=== PATIENT | female | born 1945 | race Caucasian/White ===

== ENCOUNTER 2016-10-10 22:41 | Emergency (ER) | payer MEDICARE, OTHER ==
[~2016-10-10] VITALS: Ht 165.1 cm; Wt 77.0 kg
[2016-10-10 22:54] VITALS: BP 180/88; PULSE 94; RESP 16; TEMP 97.5; O2SAT 98
[2016-10-10] MEDS ORDERED: OMEP20TA PO (23:28)
[2016-10-10] MEDS ORDERED: MECL-62 PO (23:28)
[2016-10-10] MEDS ORDERED: ONDANSETRON HCL 4 MG/2 ML VIAL IV PUSH ONE (23:30)
[2016-10-10] MEDS ORDERED: SODIUM CHLORIDE 0.9% FLUSH 10 ML FLUSH IVF PRN (23:30)
[2016-10-10 23:35] VITALS: BP 183/85; PULSE 91; RESP 16; O2SAT 97
--- NOTE | 2016-10-10 23:59 | RADRPT ---
EXAM DATE/TIME: 10/10/2016 23:36 [place] COMPARISON: No previous studies available for comparison. INDICATIONS : Nausea, elevated BP, and weakness. MEDICAL HISTORY : None. SURGICAL HISTORY : None. ENCOUNTER: Initial ACUITY: 2 days PAIN SCORE: 3/10 LOCATION: chest FINDINGS: A single view of the chest demonstrates the lungs to be symmetrically aerated without evidence of mas s, infiltrate or effusion. The cardiomediastinal contours are unremarkable. Osseous structures are intact. CONCLUSION: 1. No acute cardiopulmonary disease. Alpesh Mendiola MD on October 10, 2016 at 23:57 Board Certified Radiologist. This report was verified electronically.
[2016-10-11 00:25] LABS: AUTOMATED NEUTROPHIL # 4.9 TH/MM3 (1.8-7.7); BASOPHIL # 0.1 TH/MM3 (0-0.2); BASOPHIL % 0.6 % (0.0-2.0); EOSINOPHIL # 0.2 TH/MM3 (0-0.4); HEMATOCRIT 45.6 % (35.0-46.0); HEMO FLAGS DIFF FINAL; LYMPHOCYTE # 2.1 TH/MM3 (1.0-4.8); MEAN CELL VOLUME 87.1 FL (80.0-100.0); MEAN CORPUSCULAR HEMOGLOBIN 28.9 PG (27.0-34.0); MEAN CORPUSCULAR HGB CONC 33.2 % (32.0-36.0); MONO % 9.1 % (0.0-8.0); NEUT % 62.3 % (16.0-70.0); PLATELET COUNT 331 TH/MM3 (150-450); RED BLOOD COUNT 5.24 MIL/MM3 (4.00-5.30); RED CELL DISTRIBUTION WIDTH 13.2 % (11.6-17.2); WHITE BLOOD COUNT 7.9 TH/MM3 (4.0-11.0)
[2016-10-11 00:47] LABS: ANION GAP 7 MEQ/L (5-15); BICARBONATE 28.2 MEQ/L (21.0-32.0); BLOOD UREA NITROGEN 8 MG/DL (7-18); CHLORIDE 106 MEQ/L (98-107); CREATINE KINASE 98 U/L (26-192); GLOMERULAR FILTRATION RATE 66 ML/MIN (>89); MAGNESIUM 2.3 MG/DL (1.5-2.5); POTASSIUM 3.9 MEQ/L (3.5-5.1); SODIUM (NA) 141 MEQ/L (136-145)
[2016-10-11 00:52] VITALS: BP 151/85; PULSE 91; RESP 16; O2SAT 98
[2016-10-11 00:53] LABS: APTT (PATIENT) 25.8 SEC (24.3-30.1); INTERNATIONAL NORMALIZED RATIO 0.9 RATIO; PROTHROMBIN TIME - PATIENT 10.4 SEC (9.8-11.6)
--- NOTE | 2016-10-11 01:08 | PD ---
HPI Chief Complaint: GI Complaint Time Seen by Provider: 23:02 Travel History International Travel<30 days: No Contact w/Intl Traveler<30days: No Traveled to known affect area: No History of Present Illness HPI The patient 71. She arrives to the ER with a complaint of generalized malaise and a generalized sensation of not feeling well. Patient reports fairly severe stress and anxiety associated with her daughter's recent suicide attempt which has placed her in the ICU with a very grave prognosis. 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 Nausea and vomiting reported by patient to the track manager [facility] Past Medical History GERD: Yes Neurologic: Yes (Vertigo) Past Surgical History Cholecystectomy: Yes Social History Alcohol Use: No Tobacco Use: No Substance Use: No Allergies-Medications (Allergen,Severity, Reaction): Coded Allergies: Bactrim (Verified Allergy, Unknown, 10/11/16) Codeine (Verified Allergy, Unknown, 10/11/16) Penicillin (Verified Allergy, Unknown, 10/11/16) Tetracycline (Verified Allergy, Unknown, 10/11/16) Uncoded Allergies: muscle relaxers (Allergy, Unknown, 10/11/16) pt states all muscle relaxers Reported Meds & Prescriptions Reported Meds & Active Scripts Active Reported Meclizine (Meclizine HCl) 25 Mg Tab 25 Mg PO DIRECTED PRN Omeprazole 20 Mg Tab 20 Mg PO DAILY Review of Systems Except as stated in HPI: all other systems reviewed are Neg Physical Exam Narrative GENERAL: 71-year-old female pleasant well-nourished well-developed SKIN: Focused skin assessment warm/dry. HEAD: Atraumatic. Normocephalic. EYES: Pupils equal and round. No scleral icterus. No injection or drainage. ENT: No nasal bleeding or discharge. Mucous membranes pink and moist. NECK: Trachea midline. No JVD. CARDIOVASCULAR: Regular rate and rhythm. No murmur appreciated. RESPIRATORY: No accessory muscle use. Clear to auscultation. Breath sounds equal bilaterally. GASTROINTESTINAL: Abdomen soft, non-tender, nondistended. Hepatic and splenic margins not palpable. MUSCULOSKELETAL: No obvious deformities. No clubbing. No cyanosis. No edema. NEUROLOGICAL: Awake and alert. No obvious cranial nerve deficits. Motor grossly within normal limits. Normal speech. PSYCHIATRIC: Appropriate mood and affect; insight and judgment normal. Data Data Last Documented VS Vital Signs Date Time Temp Pulse Resp B/P Pulse Ox O2 Delivery O2 Flow Rate FiO2 10/11/16 00:52 91 16 151/85 98 Room Air 10/10/16 22:54 97.5 Vital signs reviewed Orders Electrocardiogram (10/10/16 23:30) Basic Metabolic Panel (Bmp) (10/10/16 23:30) Ckmb (Isoenzyme) Profile (10/10/16 23:30) Complete Blood Count With Diff (10/10/16 23:30) Magnesium (Mg) (10/10/16 23:30) Prothrombin Time / Inr (Pt) (10/10/16 23:30) Act Partial Throm Time (Ptt) (10/10/16 23:30) Troponin I (10/10/16 23:30) Chest, Single Ap (10/10/16 23:30) Ecg Monitoring (10/10/16 23:30) Iv Access Insert/Monitor (10/10/16 23:30) Oximetry (10/10/16 23:30) Oxygen Administration (10/10/16 23:30) Sodium Chloride 0.9% Flush (Ns Flush) (10/10/16 23:30) Ondansetron Inj (Zofran Inj) (10/10/16 23:30) Labs Laboratory Tests Test 10/11/16 00:08 White Blood Count 7.9 TH/MM3 Red Blood Count 5.24 MIL/MM3 Hemoglobin 15.1 GM/DL Hematocrit 45.6 % Mean Corpuscular Volume 87.1 FL Mean Corpuscular Hemoglobin 28.9 PG Mean Corpuscular Hemoglobin 33.2 % Concent Red Cell Distribution Width 13.2 % Platelet Count 331 TH/MM3 Mean Platelet Volume 7.7 FL Neutrophils (%) (Auto) 62.3 % Lymphocytes (%) (Auto) 26.0 % Monocytes (%) (Auto) 9.1 % Eosinophils (%) (Auto) 2.0 % Basophils (%) (Auto) 0.6 % Neutrophils # (Auto) 4.9 TH/MM3 Lymphocytes # (Auto) 2.1 TH/MM3 Monocytes # (Auto) 0.7 TH/MM3 Eosinophils # (Auto) 0.2 TH/MM3 Basophils # (Auto) 0.1 TH/MM3 CBC Comment DIFF FINAL Differential Comment Prothrombin Time 10.4 SEC Prothromb Time International 0.9 RATIO Ratio Activated Partial 25.8 SEC Thromboplast Time Sodium Level 141 MEQ/L Potassium Level 3.9 MEQ/L Chloride Level 106 MEQ/L Carbon Dioxide Level 28.2 MEQ/L Anion Gap 7 MEQ/L Blood Urea Nitrogen 8 MG/DL Creatinine 0.84 MG/DL Estimat Glomerular Filtration 66 ML/MIN Rate Random Glucose 101 MG/DL Calcium Level 9.3 MG/DL Magnesium Level 2.3 MG/DL Total Creatine Kinase 98 U/L Troponin I LESS THAN 0.02 NG/ML MDM Medical Decision Making Medical Screen Exam Complete: Yes Emergency Medical Condition: Yes Medical Record Reviewed: Yes Differential Diagnosis Anxiety, acute coronary syndrome, electrolyte imbalance, sepsis, arrhythmia Narrative Course CBC & BMP Diagram 10/11/16 00:08 INR 0.9 EKG reveals sinus rhythm with a rate of [address] changes Last 24 hours Impressions Chest X-Ray 10/10/16 2330 Signed Impressions: Service Date/Time: September 23:36 - CONCLUSION: 1. No acute cardiopulmonary disease. Alpesh Mendiola MD The patient is resting comfortably and feels better, is alert and in no distress. The patients results and examination findings were discussed. The repeat examination is unremarkable and benign. The history, exam, diagnostic testing, and current condition do not suggest any significant pathology to warrant further testing, continued ED treatment, admission, or surgical evaluation at this point. The vital signs have been stable. The patient does not have uncontrollable pain, intractable vomiting, or other significant symptoms. The patient's condition is stable and appropriate for discharge. The patient will pursue further outpatient evaluation with a primary care physician or other designated or consulting physician as indicated in the discharge instructions. The patient expressed understanding and was agreeable with this plan. Diagnosis Primary Impression: Stress Additional Impression: Diarrhea Qualified Code: R19.7 - Diarrhea, unspecified type Referrals: Primary Care Physician 2 days Additional Instructions: You have a choice when it comes to health care, and we are glad that you chose [facility]. Hopefully, we have met your expectations on today's visit. You are welcome to return to [facility] at any time, as we are committed to meeting the health care needs of our community. Med/Other Pt SpecificInfo: No Change to Meds Disposition: DISCHARGE HOME Condition: Stable Raji Severino MD Oct 11, 2016 01:08
[2016-10-11] MEDS ORDERED: ZOFR4TAB3 SL (01:39)
--- NOTE | 2016-10-11 22:31 | EKG ---
Date Performed: 10/10/2016 Time Performed: 23:42:32 PTAGE: 71 years EKG: Sinus rhythm NONSPECIFIC T-WAVE ABNORMALITY BORDERLINE ECG NO PREVIOUS TRACING DOCTOR: Delano Griffin Interpretating Date/Time 10/11/2016 22:31:02
== END 2016-10-11 01:54 | disposition home or self-care (01) ==
LOC: NEPC 22:41
DX: F43.9 Reaction to severe stress, unspecified (principal); R19.7 Diarrhea, unspecified; R11.2 Nausea with vomiting, unspecified; R53.81 Other malaise
CPT/HCPCS: 71010; 80048; 82550; 83735; 84484; 85025; 85610; 85730; 93005; 99285